=== PATIENT | female | born 1995 | race Caucasian/White ===

== ENCOUNTER 2017-03-21 20:59 | Emergency (ER) | payer OTHER ==
[2017-03-21 21:18] VITALS: RESP 18
[2017-03-21] MEDS ORDERED: NS 1,000 ML IV ONE (21:29)
--- NOTE | 2017-03-21 21:40 | CPEKG ---
Heart Rate: 56 RR Interval: 1071 P-R Interval: 176 QRSD Interval: 96 QT Interval: 432 QTC Interval: 417 P Allison: 7 QRS Allison: 11 T Wave Allison: 6 EKG Severity - NORMAL ECG - EKG Impression: SINUS RHYTHM Electronically Signed By: Erasmo Wiggins 21-Mar-2017 22:54:16
--- NOTE | 2017-03-21 21:51 | EDPHY ---
H & P Stated Complaint: syncopeal episoide <5 sec LOC Time Seen by Provider: 03/21/17 21:37 HPI/ROS: CHIEF COMPLAINT: Syncopal episode HISTORY OF PRESENT ILLNESS: 21-year-old female arrives via private vehicle with her friend complaining of syncopal episode. The patient has a history depression, was at a movie screening including question answer and stated to her friend that she was starting to feel lightheaded, hot, diaphoretic and then had a syncopal episode while she was seated. No prior alcohol use. Positive prior marijuana use. She lost consciousness for less than 5 seconds had no postictal symptoms or confusion. There was no antecedent chest pain, headache, visual disturbance, palpitations. She currently states that she is feeling slightly anxious and "feeling weird". Denies: Headache, abdominal pain, nausea , vomiting, antecedent illness. She ate lunch earlier today. No history of seizure disorder. Denies suicidal or homicidal ideation PRIMARY CARE PROVIDER: in [place], [place] REVIEW OF SYSTEMS: A ten point review of systems was performed and is negative with the exception of the items mentioned in the HPI PAST MEDICAL & SURGICAL HISTORY: depression. Suicidality. SOCIAL HISTORY:positive marijuana use. PHYSICAL EXAM (Prior to examination, patient consented to physical exam, hands were washed and my usual and customary physical exam procedures followed) 1) GENERAL: Well-developed, well-nourished, alert and oriented. Appears to be in no acute distress. 2) HEAD: Normocephalic, atraumatic 3) HEENT: Pupils equal, round, reactive to light bilaterally. Sclera anicteric. Nasopharynx, oropharynx, clear, no lesions. No evidence of trauma. Ears bilaterally with normal tympanic membranes. 4) NECK: Full range of motion, no meningeal signs. 5) LUNGS: Clear auscultation bilaterally, no wheezes, no rhonchi, no retractions. 6) HEART: Regular rate and rhythm, no murmur, no heave, no gallop. 7) ABDOMEN: No guarding, no rebound, no focal tenderness, 8) MUSCULOSKELETAL: No peripheral edema or discoloration. 9) BACK: no midline vertebral tenderness, no fluctuance, no step-off, no obvious trauma, no visual or palpable abnormality. 10) SKIN: No rash, no petechiae. 11) Psychiatric: Patient is oriented X 3, there is no agitation. 12) NEURO: Awake, alert, and oriented to person, place and time. Answers questions appropriately. There were no obvious focal neurologic abnormalities. No cerebellar dysfunction. Cranial nerves 2 through to 12 intact. Normal steady gait. Upper and lower extremities bilaterally with strength 5 / 5, reflexes 2+. DIFFERENTIAL DIAGNOSIS: in no particular include but limited to cardiac arrhythmia, ectopic , vasovagal syncope, transient hypoglycemia, CVA - Personal History LMP (Females 10-55): 8-14 Days Ago Current Tetanus/Diphtheria Vaccine: Unsure Current Tetanus Diphtheria and Acellular Pertussis (TDAP): Unsure - Medical/Surgical History Hx Asthma: No Hx Chronic Respiratory Disease: No Hx Diabetes: No Hx Cardiac Disease: No Hx Renal Disease: No Hx Cirrhosis: No Hx Alcoholism: No Hx HIV/AIDS: No Hx Splenectomy or Spleen Trauma: No Other PMH: wisdom teeth, enuriss, depression, anxiety, PTSD - Social History Smoking Status: Current some day smoker Constitutional: Initial Vital Signs Temperature (C) 36.5 C 03/21/17 21:13 Heart Rate 64 03/21/17 21:13 Respiratory Rate 18 03/21/17 21:13 Blood Pressure 122/76 H 03/21/17 21:13 O2 Sat (%) 98 03/21/17 21:13 O2 Delivery Mode Room Air Allergies/Adverse Reactions: Penicillins Allergy (Verified 03/21/17 21:13) Home Medications: Medication Instructions Recorded Desmopressin 03/21/17 Wellbutrin Xl 03/21/17 Medical Decision Making ED Course/Re-evaluation: 10:11 p.m.: Patient has been re-evaluated with serial examinations. She had no postictal symptoms and upon speaking with the friend I think that seizure is less than likely in this patient. Doubt cardiac arrhythmia. I think the patient can be discharged home with usual customary precautions and strict return precautions.Care and management in consultation with secondary supervising physician Dr Wiggins . - Data Points Laboratory Results: Laboratory Results 03/21/17 21:30 03/21/17 21:30 03/21/17 03/21/17 03/21/17 21:30 21:30 21:30 WBC 10.17 10^3/uL H 10^3/uL (3.80-9.50) RBC 5.29 10^6/uL 10^6/uL (4.18-5.33) Hgb 16.3 g/dL g/dL (12.6-16.3) Hct 47.6 % H % (38.0-47.0) MCV 90.0 fL fL (81.5-99.8) MCH 30.8 pg pg (27.9-34.1) MCHC 34.2 g/dL g/dL (32.4-36.7) RDW 13.0 % % (11.5-15.2) Plt Count 293 10^3/uL 10^3/uL (150-400) MPV 10.3 fL fL (8.7-11.7) Neut % (Auto) 60.0 % % (39.3-74.2) Lymph % (Auto) 30.4 % % (15.0-45.0) [place] % (Auto) 6.6 % % (4.5-13.0) Eos % (Auto) 2.2 % % (0.6-7.6) Baso % (Auto) 0.5 % % (0.3-1.7) Nucleat RBC Rel Count 0.0 % % (0.0-0.2) Absolute Neuts (auto) 6.11 10^3/uL 10^3/uL (1.70-6.50) Absolute Lymphs (auto) 3.09 10^3/uL H 10^3/uL (1.00-3.00) Absolute Monos (auto) 0.67 10^3/uL 10^3/uL (0.30-0.80) Absolute Eos (auto) 0.22 10^3/uL 10^3/uL (0.03-0.40) Absolute Basos (auto) 0.05 10^3/uL 10^3/uL (0.02-0.10) Absolute Nucleated RBC 0.00 10^3/uL 10^3/uL (0-0.01) Immature Gran % 0.3 % % (0.0-1.1) Immature Gran # 0.03 10^3/uL 10^3/uL (0.00-0.10) Sodium 141 mEq/L mEq/L (134-144) Potassium 3.7 mEq/L mEq/L (3.5-5.2) Chloride 104 mEq/L mEq/L (97-110) Carbon Dioxide 25 mEq/l mEq/l (22-31) Anion Gap 12 mEq/L mEq/L (8-16) BUN 12 mg/dL mg/dL (7-23) Creatinine 0.9 mg/dL mg/dL (0.6-1.0) Estimated GFR > 60 Glucose 96 mg/dL mg/dL (70-100) Calcium 9.7 mg/dL mg/dL (8.5-10.4) Beta HCG, Qual NEGATIVE Departure - Departure Disposition: Home, Routine, Self-Care Clinical Impression: Syncope Qualifiers: Syncope type: unspecified Qualified Code(s): R55 - Syncope and collapse Condition: Good Instructions: Syncope (ED) Additional Instructions: Call 911 if you developed feeling of passing out, if you develop headaches, chest pain, or any other symptoms that concern you. Referrals: Follow-up, with your doctor in [place] in 1-2 days [Other] - As per Instructions
[2017-03-21 22:00] LABS: % IMMATURE GRANULYOCYTES 0.3 % (0.0-1.1); ABSOLUTE IMMATURE GRANULOCYTES 0.03 10^3/uL (0.00-0.10); ADD DIFF? NO; ADD MORPH? NO; ADD SCAN? NO; ATYPICAL LYMPHOCYTE FLAG 0 (0-99); FRAGMENT RBC FLAG 0 (0-99); HEMATOCRIT 47.6 % (38.0-47.0); HEMOGLOBIN 16.3 g/dL (12.6-16.3); LEFT SHIFT FLG 0 (0-99); LIPEMIA HEMOLYSIS FLAG 90 (0-99); MEAN CELL HEMOGLOBIN 30.8 pg (27.9-34.1); MEAN CELL HEMOGLOBIN CONCENTR. 34.2 g/dL (32.4-36.7); MEAN PLATELET VOLUME 10.3 fL (8.7-11.7); PLATELET CLUMPS FLAG 0 (0-99); PLATELET COUNT 293 10^3/uL (150-400); RED BLOOD CELL COUNT 5.29 10^6/uL (4.18-5.33)
[2017-03-21 22:09] LABS: ANION GAP 12 mEq/L (8-16); CALCIUM 9.7 mg/dL (8.5-10.4); CARBON DIOXIDE 25 mEq/l (22-31); CHLORIDE 104 mEq/L (97-110); CREATININE 0.9 mg/dL (0.6-1.0); GLOMERULAR FILTRATION RATE > 60; GLUCOSE 96 mg/dL (70-100); POTASSIUM 3.7 mEq/L (3.5-5.2); SODIUM 141 mEq/L (134-144)
[2017-03-21 22:44] VITALS: BP 117/71; PULSE 84; TEMP 98.2; O2SAT 95
== END 2017-03-21 22:45 | disposition home or self-care (01) ==
DX: R55 Syncope and collapse (principal); F17.200 Nicotine dependence, unspecified, uncomplicated